=== PATIENT | female | born 1965 | race Caucasian/White ===

== ENCOUNTER 2020-09-01 16:43 | Emergency (ER) | payer MEDICAID ==
[~2020-09-01] VITALS: Ht 165.1 cm; Wt 77.1 kg
[2020-09-01 17:04] VITALS: BP_SYST 133
[2020-09-01 18:45] LABS: BILIRUBIN,URINE NEGATIVE (NEGATIVE); BLOOD, URINE 3+ (NEGATIVE); CLARITY/URINE TURBID (CLEAR); COLOR,URINE RED (YELLOW); GLUCOSE,URINE NEGATIVE (NEGATIVE); KETONES,URINE NEGATIVE (NEGATIVE); LEUKOCYTE ESTERASE ,URINE 2+ (NEGATIVE); NITRITE, URINE NEGATIVE (NEGATIVE); PROTEIN URINE 3+ (NEGATIVE); UROBILINOGEN,URINE 0.2 (0.2-1.0)
[2020-09-01 19:12] LABS: BACTERIA,URINE FEW /HPF (None Seen); RBC,URINE >100 /HPF (0-3); WBC,URINE 20-50 /HPF (0-3)
[2020-09-01 19:13] LABS: MUCUS,URINE None Seen /LPF (None Seen)
[2020-09-01] MEDS: PHENAZOPYRIDINE HCL 100 MG TABLET PO ONE (20:24)
[2020-09-01] MEDS ORDERED: PHEN-890 PO (20:27)
[2020-09-01] MEDS ORDERED: cefdinir PO (20:32)
[2020-09-01 20:54] VITALS: BP_SYST 133
== END 2020-09-01 20:54 | disposition home or self-care (01) ==
LOC: SED 16:43
DX: N30.91 Cystitis, unspecified with hematuria (principal); E03.9 Hypothyroidism, unspecified; Z79.899 Other long term (current) drug therapy
CPT/HCPCS: 81000; 87086; 99283